=== PATIENT | female | born 1985 | race Caucasian/White ===

== ENCOUNTER 2022-08-07 12:54 | Inpatient (IN) | payer MEDICAID ==
[~2022-08-07] VITALS: Ht 15.2 cm; Wt 96.0 kg
[2022-08-07] VITALS (22 sets, daily range): BP systolic 118–163; BP diastolic 72–110
--- NOTE | 2022-08-07 13:15 | NUR ---
PT ARRIVED TO THE ER IN A WHEELCHAIR, WITH AT SIDE. PT REPORTS FEELING NEW WEAKNESS, BLURRED VISION, AND DIFFICULTY SPEAKING. PT REPORTS SHES HAVING DIFFICULTY SPEAKING, PT ALERT BUT CONFUSED. A/OX2 ANSWERS QUESTIONS BUT DOES NOT RECALL SOME DETAILS. PT IS ANXIOUS. VSS. PT DENIES PAIN, SOB ON ROOMAIR. NIHSS SCALE 4, PT HAD DIFFULTY SMILING AND FROWNING WHEN ASKED. MD NOTIFIED.
--- NOTE | 2022-08-07 13:18 | NUR ---
CODE STROKE CALLED. PATIENT RUSHED TO CT. CT OBTAINED. UNABLE TO GET IV ACCESS. ATTEMPTED TO INSERT IV ACCESS 8 TIMES.
[2022-08-07 13:51] LABS: BASO% 0.4 % (0-3); EOS% 1.5 % (0-8); HEMATOCRIT 50.2 % (37.0-47.0); HEMOGLOBIN 16.7 g/dl (12.0-16.0); IMMATURE GRANULOCYTES 0.2 % (0.0-5.0); LYMPH% 25.8 % (15-41); MEAN CELL VOLUME 96.2 fL CALC (80.0-100.0); MEAN CORPUSCULAR HGB CONC 33.3 g/dL CAL (32.0-36.0); MONO% 5.1 % (2-13); NEUT# 5.63 thou/uL (2.00-7.15); RED BLOOD COUNT 5.22 mill/uL (4.20-5.60); RED CELL DISTRI WIDTH 12.6 % (11.5-15.5)
[2022-08-07 14:03] LABS: ALKALINE PHOSPHATASE 97 u/l (38-126); ANION GAP 27 (6-22 (CALC)); BILIRUBIN, TOTAL 0.8 mg/dL (0.02-1.3); BUN 12 mg/dL (7-17); BUN/CREATININE RATIO 17 (12-20 (CALC)); CARBON DIOXIDE 20 mmol/l (22-30); CHLORIDE 97 mmol/l (95-108); CREATININE 0.7 mg/dL (0.5-1.0); GFR FOR AFR.AMER. > 60 ML/MIN (>=60 (CALC)); GFR OTHER RACES > 60 ML/MIN (>=60 (CALC)); POTASSIUM 4.1 mmol/l (3.5-5.1); SGOT/AST 33 u/l (14-36); SODIUM 140 mmol/l (137-146)
[2022-08-07 14:07] LABS: PROTHROMBIN TIME 10.2 SECONDS (9.0-12.5)
[2022-08-07 14:10] LABS: ALBUMIN > 6.0 g/dL (3.2-5.0); TOTAL PROTEIN 11.2 g/dL (6.3-8.2)
[2022-08-07 15:24] LABS: URINE BILIRUBIN - DIPSTICK NEGATIVE (NEGATIVE); URINE BLOOD DIPSTICK NEGATIVE (NEGATIVE); URINE COLOR YELLOW; URINE GLUCOSE - DIPSTICK NEGATIVE (NEGATIVE); URINE KETONE 15 mg/dL (NEGATIVE); URINE LEUK ESTERASE NEGATIVE (NEGATIVE); URINE PROTEIN - DIPSTICK NEGATIVE (NEG-TRACE); URINE UROBILINOGEN - DIPSTICK 0.2 E.U./dL (0.2)
[2022-08-07 15:25] LABS: URINE NITRITE - DIPSTICK NEGATIVE (Negative)
[2022-08-07 18:03] LABS: C-REACTIVE PROTEIN 0.7 mg/dL (0-0.9); CHOLESTEROL HDL RATIO 2.6 (<4.4 (CALC))
--- NOTE | 2022-08-07 19:17 | NUR ---
PT IN ROOM RESTING. PT PROVIDED BSC, AND WATER. PT DENIES FOOD REPORTS FEELING BETTER. VSS. REPORT GIVEN TO DAY RN, ICU
--- NOTE | 2022-08-07 19:45 | NUR ---
PT ARRIVED FROM ED VIA WHEELCHAIR, NAD, VSS. NIH IS 0 AT THIS TIME BUT PATIENT STATES SHE STILL FEELS LIKE SHE IS NOT 100%, STATES HER SPEECH SEEMS OFF, BUT NOT NOTIBLE TO MYSELF, ALSO STATES SHE FEELS WEAK IN HER LEFT ARM AND LEG, BUT IS OK AMBULATING WITH STAND BY ASSIST. WILL CONT. TO MONITOR THROUGHOUT THE NIGHT.
--- NOTE | 2022-08-07 20:30 | NUR ---
PT VSS, PT REPORTS FEELING BETTER, PT IS ABLE TO STAND ON HER OWN AND DISPLAYS LE STRENGTH. PT DENIES FEELING DIZZINESS, BLURRED VISION. PT TAKEN TO ICU ROOM 3
--- NOTE | 2022-08-07 21:51 | NUR ---
PT JUST AMBULATED TO RESTROOM WITH NO VISBLE WEAKNESS NOTED. STAND BY ASSIST. PT STATES THAT AFTER WALKING TO THE RESTROOM, SHE HAS A HEADACHE IN THE FRONT LEFT PART OF HER HEAD, THAT FEELS LIKE PRESSURE. WILL CONT. TO MONITOR THE PAIN AT THIS TIME 10 PAIN. VSS, NAD.
[2022-08-08] VITALS (17 sets, daily range): BP systolic 108–161; BP diastolic 69–104
--- NOTE | 2022-08-08 | NUR ---
PT IS EASI;Y AROUSABLE FOR NEURO CHECKS. SHE IS STILL A NIH OF 0. SHE DOES HAVE C/O OF PRESSURE ON THE FRONTAL LEFT OF HER HEAD, BUT NO PAIN. CONTIUING TO MONITOR THIS WELL. VSS, NAD.
--- NOTE | 2022-08-08 04:00 | NUR ---
PT RESTING, VSS, NAD. NIH 0.
--- NOTE | 2022-08-08 07:10 | NUR ---
The patient is resting comfortably. Performed bedside assessment. NIH score 0, reports headaches and some tingling in the left lower extremity. No blurred vision or lightheadedness.
--- NOTE | 2022-08-08 09:30 | NUR ---
The patient walked upto bathroom, reports that still has some weakness in the left lower extremity and tingling. 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 She voided and walked back to bed without any difficulty.
--- NOTE | 2022-08-08 10:50 | NUR ---
Took the patient down to MRI, has good IV access.
--- NOTE | 2022-08-08 12:00 | NUR ---
The patient brought back to ICU from MRI, tolerated well. 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 She has weakness in the left leg with no drift. No double vision, lightheadedness or dizziness.
--- NOTE | 2022-08-08 12:02 | NUR ---
pt resting in bed with eyes closed; no apparent distress noted; afib on monitor; iv intact; lunch held d/t sleeping; call light within reach; will continue to monitor
--- NOTE | 2022-08-08 13:08 | NUR ---
Spoke with Dr. Douglas regarding the MRI results. MD ordered to consult tele neurologist for follow up and discharge plan. Also informed MD about elevated BP at 160/100 for the past 2 hours, received order to start the patient on Norvasc 5 mg po daily.
--- NOTE | 2022-08-08 16:15 | NUR ---
The patient is seen by tele neurologist, no stroke, dcd Aspirin and Plavix. Continue statin for hyperlipidemia. Tele neurology stated could be vestibular migraine. Tele neurologist signed off.
[2022-08-08] MEDS ORDERED: AMLODIPINE BESYL5 MG PO (16:53)
[2022-08-08] MEDS ORDERED: CRESTOR20 MG PO (16:53)
--- NOTE | 2022-08-08 17:15 | NUR ---
Discharge instructions given. Patient verbalizes understanding of same. Discharged in stable condition via Wheelchair to Home with spouse. All belongings sent with pt.
== END 2022-08-08 17:20 | disposition home or self-care (01) | DRG 103 ==
LOC: ED 12:54 → ED-I 15:51 → ED 17:20 → ICU 17:21
PROVIDERS: Nurse Practitioner; ADMIT Internal Medicine; ATTEND Internal Medicine
DX: G43.809 Other migraine, not intractable, without status migrainosus (principal); Z85.42 Personal history of malignant neoplasm of other parts of uterus; Z90.710 Acquired absence of both cervix and uterus
CPT/HCPCS: A9579; Q9967

== ENCOUNTER 2023-06-09 09:09 | Emergency (ER) | payer MEDICAID ==
[2023-06-09] VITALS (13 sets, daily range): BP systolic 92–148; BP diastolic 60–103
[~2023-06-09] VITALS: Ht 167.6 cm; Wt 102.0 kg
[~2023-06-09 09:09] MED LIST: AMLODIPINE BESYL5 MG PO; CRESTOR20 MG PO
[2023-06-09 11:32] LABS: URINE BILIRUBIN - DIPSTICK Negative (NEGATIVE); URINE BLOOD DIPSTICK Negative (NEGATIVE); URINE GLUCOSE - DIPSTICK Negative (NEGATIVE); URINE KETONE Negative (NEGATIVE); URINE LEUK ESTERASE Negative (NEGATIVE); URINE NITRITE - DIPSTICK Negative (Negative); URINE PROTEIN - DIPSTICK Negative (NEG-TRACE); URINE UROBILINOGEN - DIPSTICK 0.2 E.U./dL (0.2)
[2023-06-09] MEDS ORDERED: HYDROmorphone HCL 2 MG/AMP IV ONE ×2 (11:55→14:35)
[2023-06-09] MEDS ORDERED: KETOROLAC TROMETHAMINE 15 MG/ML SDV IV ONE (11:55)
[2023-06-09] MEDS ORDERED: DEXAMETHASONE SODIUM PHOSPHATE 4 MG/VIAL SDV IV ONE (11:55)
[2023-06-09 12:07] LABS: URINE COLOR Yellow
[2023-06-09 15:07] LABS: ANION GAP 11 (6-22 (CALC)); BUN 14 mg/dL (7-17); BUN/CREATININE RATIO 35 (12-20 (CALC)); CARBON DIOXIDE 23 mmol/l (22-30); CHLORIDE 107 mmol/l (95-108); CREATININE 0.4 mg/dL (0.5-1.0); GFR FOR AFR.AMER. > 60 ML/MIN (>=60 (CALC)); GFR OTHER RACES > 60 ML/MIN (>=60 (CALC)); MAGNESIUM 1.9 mg/dL (1.6-2.3); SODIUM 137 mmol/l (137-146)
[2023-06-09] MEDS ORDERED: PERCOCET1 TA2 PO (16:07)
== END 2023-06-09 16:14 | disposition home or self-care (01) ==
LOC: ED 09:09
PROVIDERS: Emergency Medicine
DX: M51.16 Intervertebral disc disorders with radiculopathy, lumbar region (principal); I10 Essential (primary) hypertension; Z86.73 Personal history of transient ischemic attack (TIA), and cerebral infarction without residual deficits